=== PATIENT | female | born 1995 | race Two or more races ===

== ENCOUNTER 2016-04-24 11:49 | Emergency (ER) | payer MEDICAID ==
[2016-04-24 13:29] LABS: URINE APPEARANCE CLOUDY; URINE BILIRUBIN NEGATIVE (NEGATIVE); URINE BLOOD 4+ (NEGATIVE); URINE COLOR DARK YELLOW; URINE GLUCOSE (UA) NEGATIVE (NEGATIVE); URINE LEUKOCYTE ESTERASE TRACE (NEGATIVE); URINE NITRITE NEGATIVE (NEGATIVE); URINE PROTEIN TRACE (NEGATIVE); URINE UROBILINOGEN NORMAL (0-1 mg/dl)
[2016-04-24 13:30] LABS: HCG,QUALITATIVE URINE NEGATIVE
[2016-04-24 13:44] LABS: URINE RBC >100 /hpf
[2016-04-24 13:45] LABS: URINE BACTERIA 3+
[2016-04-27 09:02] LABS: CHLAMYDIA BD Negative (Negative); N.GONORRHOEAE BD Negative (Negative); SOURCE Urine (())
== END 2016-04-24 14:03 | disposition home or self-care (01) ==
LOC: ED 11:49
DX: N93.8 Other specified abnormal uterine and vaginal bleeding (principal)

== ENCOUNTER 2016-06-06 21:29 | Emergency (ER) | payer MEDICAID | END 2016-06-07 00:13 | disposition home or self-care (01) | LOC: ED 21:29 | DX: K08.89 Other specified disorders of teeth and supporting structures (principal) ==